=== PATIENT | female | born 1990 | race Caucasian/White ===

== ENCOUNTER 2025-06-09 22:43 | Emergency (ER) | payer BC ==
[2025-06-09] MEDS ORDERED: Ondansetron PF 4 MG/2 ML Vial ONE (23:10)
[2025-06-09] MEDS ORDERED: Ketorolac Tromethamine 30 MG (1 mL) VIAL ONE (23:10)
[2025-06-10 00:10] LABS: #Basophils 0.04 10x3/uL (0.0-0.2); #Eosinophils 0.09 10x3/uL (0.0-0.5); #Monocytes 0.75 10x3/uL (0.0-1.1); #Neutrophils 5.23 10x3/uL (1.5-8.4); %Basophils 0.3 % (0.0-2.0); %Eosinophils 0.8 % (0.0-6.0); %Lymphocytes 47.8 % (18.0-47.0); %Monocytes 6.4 % (0.0-10.0); %Neutrophils 44.5 % (40.0-75.0); Hematocrit 37.2 % (34.9-44.5); Hemoglobin 12.4 g/dL (12.0-15.5); Mean Corpuscular Hemoglobin 30.4 pg (27.0-33.0); Mean Corpuscular Volume 91.2 fL (81.6-98.3); Platelet Count 420 10x3/uL (150-450); Red Blood Cell (RBC) Count 4.08 10x6/uL (3.90-5.03); White Blood Cell (WBC) Count 11.75 10x3/uL (3.5-10.5)
[2025-06-10 00:20] LABS: INR-International Normal Ratio 1.1; PTT 25.4 sec (22.0-33.0); Prothrombin Time 11.5 sec (9.5-12.1)
[2025-06-10 00:22] LABS: Anion Gap 14 mmol/L (10-20); BUN (Urea Nitrogen) 14 mg/dL (7.0-18.7); Calc. Creatinine Clearance 0 mL/min (70-130); Calcium 10.2 mg/dL (7.8-10.44); Carbon Dioxide 27 mmol/L (22-29); Chloride 99 mmol/L (98-107); Glucose 83 mg/dL (70-105); Potassium 3.3 mmol/L (3.5-5.1); Sodium 137 mmol/L (136-145)
[2025-06-10] MEDS ORDERED: Ketorolac Tromethamine 30 MG (1 mL) VIAL ONE (02:16)
== END 2025-06-10 03:07 | disposition home or self-care (01) ==
LOC: CSHERS 22:43
DX: R10.32 Left lower quadrant pain (principal); E03.9 Hypothyroidism, unspecified; F90.9 Attention-deficit hyperactivity disorder, unspecified type; L40.0 Psoriasis vulgaris; E78.5 Hyperlipidemia, unspecified; Z86.73 Personal history of transient ischemic attack (TIA), and cerebral infarction without residual deficits; Z79.890 Hormone replacement therapy; Z79.899 Other long term (current) drug therapy
CPT/HCPCS: 36415; 76856; 80048; 85025; 85610; 85730; 86850; 86900; 86901; 96374; 96375; 96376; J1885; J2405; J3010